=== PATIENT | female | born 1990 | race Caucasian/White ===

== ENCOUNTER 2017-07-18 20:04 | Emergency (ER) | payer OTHER ==
[~2017-07-18] VITALS: Ht 162.6 cm; Wt 67.7 kg
[~2017-07-18 20:04] MED LIST: ALBUTEROL SULF8.5 GM IH; AMITRIPTYLINE H25 MG PO; AMOXICILLIN500 MG PO; AZITHROMYCIN250 MG1 PO; CEFDINIR300 MG PO; CIPRO500 MG PO; ELAVIL10 MG PO; ELAVIL100 MG PO; FIORICET 50-301 EACH PO; FIORICET,ESG1 TABLET PO; FLEXERIL10 MG PO; FLONASE16 G1 BOTH NARES; HYCODAN SYRUP480 ML PO; HYDROCODON-ACE1 EA10 PO; IMITREX100 MG PO; INDOCIN25 MG PO; INNOPRAN XL120 MG PO; Inderal PO; KEFLEX500 MG PO; LIDOCAINE20 MG/1 M5 PO; LORTAB 5-325 M1 EACH PO; LYRICA75 MG PO; MACROBID100 MG PO; MOTRIN600 MG PO; MOTRIN800 MG PO; MUCUS ER600 MG PO; Motrin PO; NAPROSYN500 MG PO; NO HOME MEDS; NOHOMEMEDS; NORCO 5/3251 TABLET PO; NORCO 7.5/321 TABLET PO; PAXIL10 MG PO; PEN-VEE K,VEET500 MG PO; PERCOCET 5/31 TABLET PO; PERCOCET 7.51 TABLET PO; PREDNISONE20 MG PO; PROMETHAZINE HC25 M1 PO; PROPRANOLOL HCL40 MG PO; SKELAXIN800 MG PO; TORADOL10 MG PO; TRAMADOL HCL50 MG PO; TRAZODONE HCL50 MG PO; TYLENOL WITH C1 EACH PO; TYLENOL325 M1 PO; ULTRACET1 TABLET PO; ULTRAM50 MG PO; VALIUM5 MG PO; VENTOLIN HFA18 GM IH; XANAX0.25 MG PO; XANAX0.5 MG PO; ZANTAC150 MG PO; ZITHROMAX500 MG PO; ZOFRAN ODT4 MG PO; ZOFRAN4 MG PO; ZOLOFT100 M1 PO; no home med
[2017-07-18] MEDS ORDERED: NAPROSYN500 MG PO (22:05)
[2017-07-18] MEDS ORDERED: SKELAXIN800 MG PO (22:05)
[2017-07-18 22:12] VITALS: BP 123/84
== END 2017-07-18 22:15 | disposition home or self-care (01) ==
LOC: EME 20:04
DX: S46.912A Strain of unspecified muscle, fascia and tendon at shoulder and upper arm level, left arm, initial encounter (principal); X50.9XXA Other and unspecified overexertion or strenuous movements or postures, initial encounter; Y93.E9 Activity, other interior property and clothing maintenance; Z88.2 Allergy status to sulfonamides; Z88.6 Allergy status to analgesic agent; F17.200 Nicotine dependence, unspecified, uncomplicated
CPT/HCPCS: 99281; 99283